=== PATIENT | female | born 1950 | race Caucasian/White ===

== ENCOUNTER 2018-02-23 08:01 | Outpatient (RCR) | payer OTHER | END 2018-02-23 08:30 | disposition home or self-care (01) | LOC: PT 08:01 | DX: S70.01XD Contusion of right hip, subsequent encounter (principal); W18.09XD Striking against other object with subsequent fall, subsequent encounter; Y92.512 Supermarket, store or market as the place of occurrence of the external cause; Y99.0 Civilian activity done for income or pay ==

== ENCOUNTER → 2018-06-19 | Outpatient (CLI) | payer OTHER | LOC: RAD 09:24 | DX: M25.451 Effusion, right hip (principal); Z96.642 Presence of left artificial hip joint; S72.001A Fracture of unspecified part of neck of right femur, initial encounter for closed fracture; W19.XXXA Unspecified fall, initial encounter; Y99.0 Civilian activity done for income or pay ==

== ENCOUNTER → 2018-07-05 | Outpatient (CLI) | payer BC | LOC: RAD 09:43 | DX: S82.035A Nondisplaced transverse fracture of left patella, initial encounter for closed fracture (principal); M17.12 Unilateral primary osteoarthritis, left knee ==

== ENCOUNTER 2018-08-25 08:00 | Outpatient (RCR) | payer BC | END 2018-08-25 08:30 | disposition still patient (30) | LOC: PT 08:00 | DX: S82.092D Other fracture of left patella, subsequent encounter for closed fracture with routine healing (principal); W19.XXXA Unspecified fall, initial encounter; Y93.9 Activity, unspecified; Y92.9 Unspecified place or not applicable; Y99.9 Unspecified external cause status ==

== ENCOUNTER → 2021-12-04 | Outpatient (CLI) | payer MEDICARE, OTHER | LOC: RAD 10:11 | DX: M17.0 Bilateral primary osteoarthritis of knee (principal) ==

== ENCOUNTER → 2021-12-16 | Outpatient (CLI) | payer MEDICARE, OTHER | LOC: RAD 10:11 | DX: M17.0 Bilateral primary osteoarthritis of knee (principal) ==

== ENCOUNTER → 2022-04-01 | Outpatient (CLI) | payer MEDICARE, OTHER ==
[~2022-04-01] MED LIST: ACETAMINOPHEN500 M5 PO; COZAAR25 M1 PO; DULCOLAX5 M1 PO; FERROUS SULFATE65 MG PO; GOOD NEIGHBOR325 MG PO; LEVOTHYROXIN0.025 MG PO; MAGNESIUM OXID400 MG PO; MIRALAX17 GM PO; OCUVITE EYE +1 EACH PO; OMEPRAZOLE40 MG PO; OXYCODONE HYDROC5 M1 PO; VITAMIN C500 M7 PO; VITAMIN PATCH TD; ZOFRAN ODT4 MG PO
== END ==
LOC: RAD 12:16
DX: S32.029A Unspecified fracture of second lumbar vertebra, initial encounter for closed fracture (principal)

== ENCOUNTER 2022-08-27 17:44 | Emergency (ER) | payer MEDICARE, OTHER ==
[~2022-08-27] VITALS: Ht 139.7 cm; Wt 44.0 kg
[2022-08-27 18:37] LABS: BASO # 0.03 K/mm3 (0.02-0.10); EOS # 0.22 K/mm3 (0.04-0.40); EOS % 2.4 % (1.0-5.0); HEMATOCRIT 46.4 % (37.0-47.0); HEMOGLOBIN 14.5 g/dL (12.5-16.0); MEAN CELL VOLUME 102 fl (78-100); MEAN CORPUSCULAR HEMOGLOBIN 32 pg (27-31); MEAN CORPUSCULAR HGB CONC 31 g/dL (33-37); MONO # 0.45 K/mm3 (0.20-0.80); PLATELET COUNT 270 K/mm3 (130-400); RED BLOOD COUNT 4.56 M/mm3 (4.10-5.30); RED CELL DISTRIBUTION WIDTH 13.5 % (11.5-14.5); WHITE BLOOD COUNT 9.2 K/mm3 (4.8-10.8)
[2022-08-27 18:52] LABS: D-DIMER 0.61 mg/L FEU (0.15-0.50)
[2022-08-27] MEDS ORDERED: BIOTIN1000 MC1 PO (19:11)
[2022-08-27] MEDS ORDERED: CLARITIN10 M1 PO (19:11)
[2022-08-27] MEDS ORDERED: NEURIN SL (19:12)
[2022-08-27] MEDS ORDERED: CARAFATE PO (19:13)
[2022-08-27 19:19] LABS: ALBUMIN 3.7 g/dL (3.4-4.8); POTASSIUM 4.5 mmol/L (3.5-5.1); SODIUM 141 mmol/L (136-145)
[2022-08-27 19:20] LABS: CALCIUM 9.1 mg/dL (8.3-10.5)
[2022-08-27 19:21] LABS: GLUCOSE 108 mg/dL (65-105); TOTAL PROTEIN 7.3 g/dL (6.2-8.1)
[2022-08-27 19:22] LABS: CARBON DIOXIDE 21 mmol/L (23-31)
[2022-08-27 19:23] LABS: TOTAL BILIRUBIN 0.4 mg/dL (0.2-1.2)
[2022-08-27 19:26] LABS: AST-SGOT 19 U/L (5-34)
[2022-08-27 19:28] LABS: ALT/SGPT 9 U/L (0-55)
[2022-08-27 19:35] LABS: TROPONIN-I < 0.030 ng/mL (<0.030)
[2022-08-27 20:15] VITALS: BP 120/56
== END 2022-08-27 20:15 | disposition home or self-care (01) ==
LOC: ED 17:44
PROVIDERS: Family Medicine
DX: R07.89 Other chest pain (principal); Z87.891 Personal history of nicotine dependence; Z87.19 Personal history of other diseases of the digestive system; Z87.09 Personal history of other diseases of the respiratory system